=== PATIENT | male | born 1930 | race Caucasian/White ===

== ENCOUNTER → 2016-06-07 | Outpatient (CLI) | payer MEDICARE, BC ==
[~2016-06-07] MED LIST: ALDACTONE 25MG25 MG PO; ENALAPRIL20 MG PO; FLOMAX0.4 MG PO; IMDUR ER30 MG PO; LIPITOR 10MG10 MG PO; NIFEDIPINE ER90 MG PO; TIMOLOL 0.5% OP10 ML OU; ZANTAC 300300 MG PO; ZYLOPRIM300 MG PO
== END ==
LOC: LAB 10:59
DX: R19.7 Diarrhea, unspecified (principal)

== ENCOUNTER → 2016-06-19 | Outpatient (CLI) | payer MEDICARE, BC | LOC: LAB 11:03 | DX: Z51.81 Encounter for therapeutic drug level monitoring (principal); Z79.899 Other long term (current) drug therapy ==

== ENCOUNTER → 2016-07-03 | Outpatient (CLI) | payer MEDICARE, BC | LOC: LAB 10:11 | DX: Z79.899 Other long term (current) drug therapy (principal) ==

== ENCOUNTER → 2016-07-14 | Outpatient (CLI) | payer MEDICARE, BC | LOC: RAD 10:41 | DX: E11.9 Type 2 diabetes mellitus without complications (principal); J01.00 Acute maxillary sinusitis, unspecified; I25.10 Atherosclerotic heart disease of native coronary artery without angina pectoris ==

== ENCOUNTER → 2016-07-17 | Outpatient (CLI) | payer MEDICARE, BC | LOC: LAB 09:04 | DX: Z51.81 Encounter for therapeutic drug level monitoring (principal); Z79.899 Other long term (current) drug therapy; I25.10 Atherosclerotic heart disease of native coronary artery without angina pectoris ==

== ENCOUNTER → 2016-07-30 | Outpatient (CLI) | payer MEDICARE, BC | LOC: LAB 13:59 | DX: I25.10 Atherosclerotic heart disease of native coronary artery without angina pectoris (principal) ==

== ENCOUNTER → 2016-09-03 | Outpatient (CLI) | payer MEDICARE, BC ==
[2014-02-06 16:12] VITALS: BP 134/74
== END ==
LOC: LAB 11:41
DX: I25.10 Atherosclerotic heart disease of native coronary artery without angina pectoris (principal)

== ENCOUNTER → 2016-12-09 | Outpatient (CLI) | payer MEDICARE, BC ==
[2014-02-06 16:12] VITALS: BP 134/74
== END ==
LOC: LAB 12:56
DX: E11.9 Type 2 diabetes mellitus without complications (principal); I25.10 Atherosclerotic heart disease of native coronary artery without angina pectoris

== ENCOUNTER → 2017-02-02 | Outpatient (CLI) | payer MEDICARE, BC ==
[2014-02-06 16:12] VITALS: BP 134/74
== END ==
LOC: LAB 10:05
DX: E11.9 Type 2 diabetes mellitus without complications (principal); Z12.5 Encounter for screening for malignant neoplasm of prostate; I25.10 Atherosclerotic heart disease of native coronary artery without angina pectoris; N52.9 Male erectile dysfunction, unspecified; D64.9 Anemia, unspecified; R20.2 Paresthesia of skin; R10.84 Generalized abdominal pain

== ENCOUNTER → 2017-02-04 | Outpatient (CLI) | payer MEDICARE, BC ==
[2014-02-06 16:12] VITALS: BP 134/74
== END ==
LOC: LAB 14:52
DX: E11.9 Type 2 diabetes mellitus without complications (principal)

== ENCOUNTER → 2017-04-14 | Outpatient (CLI) | payer MEDICARE, BC ==
[~2017-04-14] VITALS: Ht 177.8 cm; Wt 90.9 kg
[~2017-04-14] MED LIST changes: +AMOXICILLIN875 MG; +NATURAL IRON65 MG; +OMEPRAZOLE40 MG PO; +SLOW-MAG 106 MG1 ECT; +VITAMIN C500 MG
[2017-04-14 14:17] LABS: HEMATOCRIT 32.4 % (42.0-52.0); HEMOGLOBIN 10.4 g/dL (13.5-18.0); MEAN PLATELET VOLUME 10.2 fl (7.4-10.4); RED BLOOD COUNT 3.77 M/mm3 (4.20-5.60); WHITE BLOOD COUNT 8.6 K/mm3 (4.8-10.8)
[2017-04-14 14:27] LABS: BUN/CREATININE RATIO 35.7 (6.0-26.0); CALCIUM 9.1 mg/dL (8.4-10.2); POTASSIUM 3.7 mmol/L (3.6-5.0)
[2017-04-14 15:02] VITALS: BP 121/63
[2017-04-14 16:29] VITALS: BP 126/65
== END ==
LOC: LAB 13:57 → AMSURD 13:57
PROVIDERS: Family Medicine
DX: K52.9 Noninfective gastroenteritis and colitis, unspecified (principal); R53.83 Other fatigue; K92.1 Melena; D50.9 Iron deficiency anemia, unspecified
CPT/HCPCS: J7030

== ENCOUNTER → 2017-05-24 | Outpatient (CLI) | payer MEDICARE, BC ==
[2017-04-14 16:29] VITALS: BP 126/65
[2017-05-24 15:44] LABS: ALBUMIN 4.1 g/dL (3.5-5.0); BUN/CREATININE RATIO 15.8 (6.0-26.0); CALCIUM 9.2 mg/dL (8.4-10.2); POTASSIUM 3.8 mmol/L (3.6-5.0); TOTAL BILIRUBIN 0.5 mg/dL (0.2-1.3); TOTAL PROTEIN 7.2 g/dL (6.3-8.2)
[2017-05-24 15:46] LABS: EOS # 0.2 (0.04-0.40); EOS % 3.1 % (0.0-4.0); HEMATOCRIT 44.4 % (42.0-52.0); HEMOGLOBIN 13.9 g/dL (13.5-18.0); LYMPH# 1.3 (1.50-4.00); MEAN CELL VOLUME 87 fl (78-100); MEAN CORPUSCULAR HEMOGLOBIN 27 pg (27-31); MEAN CORPUSCULAR HGB CONC 31 g/dL (33-37); MONO # 0.6 (0.20-0.80); NEU # 4.3 (1.40-6.50); PLATELET COUNT 242 K/mm3 (130-400); RED BLOOD COUNT 5.09 M/mm3 (4.20-5.60); RED CELL DISTRIBUTION WIDTH 14.3 % (11.5-14.5); WHITE BLOOD COUNT 6.5 K/mm3 (4.8-10.8)
== END ==
LOC: LAB 15:02
PROVIDERS: Internal Medicine
DX: E11.9 Type 2 diabetes mellitus without complications (principal); D50.9 Iron deficiency anemia, unspecified; I25.10 Atherosclerotic heart disease of native coronary artery without angina pectoris

== ENCOUNTER → 2017-09-01 | Outpatient (CLI) | payer MEDICARE, BC ==
[2017-04-14 16:29] VITALS: BP 126/65
[2017-09-01 14:22] LABS: EOS # 0.2 (0.04-0.40); EOS % 2.7 % (0.0-4.0); HEMATOCRIT 46.6 % (42.0-52.0); HEMOGLOBIN 15.4 g/dL (13.5-18.0); LYMPH# 1.3 (1.50-4.00); MEAN CELL VOLUME 81 fl (78-100); MEAN CORPUSCULAR HEMOGLOBIN 27 pg (27-31); MEAN CORPUSCULAR HGB CONC 33 g/dL (33-37); MEAN PLATELET VOLUME 10.9 fl (7.4-10.4); MONO # 0.5 (0.20-0.80); NEU # 4.9 (1.40-6.50); PLATELET COUNT 232 K/mm3 (130-400); RED BLOOD COUNT 5.79 M/mm3 (4.20-5.60)
[2017-09-01 14:56] LABS: BUN/CREATININE RATIO 17.4 (6.0-26.0); CALCIUM 9.5 mg/dL (8.4-10.2); TOTAL BILIRUBIN 0.6 mg/dL (0.2-1.3)
[2017-09-01 16:32] LABS: ERYTHROCYTE SEDIMENTATION RATE 1 mm/hr (0-20)
== END ==
LOC: LAB 14:01
PROVIDERS: Internal Medicine
DX: E11.9 Type 2 diabetes mellitus without complications (principal); I25.10 Atherosclerotic heart disease of native coronary artery without angina pectoris; D64.9 Anemia, unspecified; R20.2 Paresthesia of skin

== ENCOUNTER → 2018-03-01 | Outpatient (CLI) | payer MEDICARE, BC ==
[2017-04-14 16:29] VITALS: BP 126/65
== END ==
LOC: LAB 15:26
PROVIDERS: Internal Medicine
DX: E11.9 Type 2 diabetes mellitus without complications (principal)

== ENCOUNTER → 2018-07-25 | Outpatient (CLI) | payer MEDICARE, BC ==
[2017-04-14 16:29] VITALS: BP 126/65
[2018-07-25 11:41] LABS: EOS # 0.2 (0.04-0.40); EOS % 2.4 % (0.0-4.0); HEMATOCRIT 47.3 % (42.0-52.0); HEMOGLOBIN 15.5 g/dL (13.5-18.0); LYMPH# 1.5 (1.50-4.00); MEAN CELL VOLUME 85 fl (78-100); MEAN CORPUSCULAR HEMOGLOBIN 28 pg (27-31); MEAN CORPUSCULAR HGB CONC 33 g/dL (33-37); MEAN PLATELET VOLUME 11.2 fl (7.4-10.4); MONO # 0.4 (0.20-0.80); PLATELET COUNT 204 K/mm3 (130-400); RED CELL DISTRIBUTION WIDTH 14.5 % (11.5-14.5); WHITE BLOOD COUNT 6.2 K/mm3 (4.8-10.8)
[2018-07-25 13:48] LABS: ALBUMIN 4.1 g/dL (3.5-5.0); CALCIUM 9.1 mg/dL (8.4-10.2); POTASSIUM 3.7 mmol/L (3.6-5.0); TOTAL BILIRUBIN 0.7 mg/dL (0.2-1.3); TOTAL PROTEIN 6.8 g/dL (6.3-8.2)
== END ==
LOC: LAB 11:10
PROVIDERS: Internal Medicine
DX: G25.0 Essential tremor (principal); D50.9 Iron deficiency anemia, unspecified; I25.10 Atherosclerotic heart disease of native coronary artery without angina pectoris; E11.9 Type 2 diabetes mellitus without complications

== ENCOUNTER → 2019-01-12 | Outpatient (CLI) | payer MEDICARE, BC ==
[2017-04-14 16:29] VITALS: BP 126/65
[~2019-01-12] MED LIST changes: +CYANOCOBAL1000 MCG/1 IM; +LEXAPRO 10MG10 MG PO; +VITAMIN D 1001000 IU PO
[2019-01-12 16:02] LABS: EOS # 0.2 (0.04-0.40); EOS % 2.8 % (0.0-4.0); HEMATOCRIT 49.3 % (42.0-52.0); HEMOGLOBIN 16.1 g/dL (13.5-18.0); LYMPH# 1.2 (1.50-4.00); MEAN CELL VOLUME 84 fl (78-100); MEAN CORPUSCULAR HEMOGLOBIN 27 pg (27-31); MEAN CORPUSCULAR HGB CONC 33 g/dL (33-37); MEAN PLATELET VOLUME 10.7 fl (7.4-10.4); MONO # 0.4 (0.20-0.80); NEU # 4.7 (1.40-6.50); PLATELET COUNT 197 K/mm3 (130-400); RED BLOOD COUNT 5.88 M/mm3 (4.20-5.60); RED CELL DISTRIBUTION WIDTH 13.8 % (11.5-14.5); WHITE BLOOD COUNT 6.5 K/mm3 (4.8-10.8)
[2019-01-12 16:10] LABS: ALBUMIN 4.1 g/dL (3.4-4.8)
[2019-01-12 16:11] LABS: CALCIUM 9.5 mg/dL (8.3-10.5)
[2019-01-12 16:14] LABS: TOTAL BILIRUBIN 0.8 mg/dL (0.2-1.2)
[2019-01-12 17:24] LABS: ERYTHROCYTE SEDIMENTATION RATE 2 mm/hr (0-20)
== END ==
LOC: LAB 14:56
PROVIDERS: Internal Medicine
DX: E11.9 Type 2 diabetes mellitus without complications (principal); G25.0 Essential tremor; D50.9 Iron deficiency anemia, unspecified; I25.10 Atherosclerotic heart disease of native coronary artery without angina pectoris

== ENCOUNTER → 2019-01-16 | Outpatient (CLI) | payer MEDICARE, BC ==
[~2019-01-16] VITALS: Ht 177.8 cm; Wt 90.9 kg
[2019-01-16 15:25] VITALS: BP 164/82
== END ==
LOC: AMSURD 15:23
DX: R00.1 Bradycardia, unspecified (principal)

== ENCOUNTER → 2019-05-30 | Outpatient (CLI) | payer MEDICARE, BC ==
[2019-01-16 15:25] VITALS: BP 164/82
[2019-05-30 11:43] LABS: EOS # 0.2 (0.04-0.40); EOS % 3.3 % (0.0-4.0); HEMATOCRIT 47.5 % (42.0-52.0); HEMOGLOBIN 15.6 g/dL (13.5-18.0); LYMPH# 1.1 (1.50-4.00); MEAN CELL VOLUME 84 fl (78-100); MEAN CORPUSCULAR HEMOGLOBIN 28 pg (27-31); MEAN CORPUSCULAR HGB CONC 33 g/dL (33-37); MEAN PLATELET VOLUME 10.9 fl (7.4-10.4); MONO # 0.5 (0.20-0.80); NEU # 4.2 (1.40-6.50); PLATELET COUNT 216 K/mm3 (130-400); RED BLOOD COUNT 5.63 M/mm3 (4.20-5.60); RED CELL DISTRIBUTION WIDTH 13.9 % (11.5-14.5); WHITE BLOOD COUNT 6.1 K/mm3 (4.8-10.8)
[2019-05-30 11:45] LABS: ALBUMIN 4.2 g/dL (3.4-4.8); POTASSIUM 3.7 mmol/L (3.5-5.1)
[2019-05-30 11:46] LABS: CALCIUM 8.4 mg/dL (8.3-10.5)
[2019-05-30 11:49] LABS: TOTAL BILIRUBIN 0.7 mg/dL (0.2-1.2)
== END ==
LOC: LAB 11:21
PROVIDERS: Internal Medicine
DX: E11.9 Type 2 diabetes mellitus without complications (principal); D50.9 Iron deficiency anemia, unspecified; G25.0 Essential tremor

== ENCOUNTER → 2019-08-15 | Outpatient (CLI) | payer MEDICARE, BC ==
[2019-01-16 15:25] VITALS: BP 164/82
[2019-08-15 13:02] LABS: EOS # 0.3 (0.04-0.40); HEMATOCRIT 45.1 % (42.0-52.0); HEMOGLOBIN 14.7 g/dL (13.5-18.0); LYMPH# 1.1 (1.50-4.00); MEAN CELL VOLUME 84 fl (78-100); MEAN CORPUSCULAR HEMOGLOBIN 28 pg (27-31); MEAN CORPUSCULAR HGB CONC 33 g/dL (33-37); MEAN PLATELET VOLUME 10.5 fl (7.4-10.4); MONO # 0.5 (0.20-0.80); NEU # 4.4 (1.40-6.50); PLATELET COUNT 217 K/mm3 (130-400); RED BLOOD COUNT 5.35 M/mm3 (4.20-5.60); RED CELL DISTRIBUTION WIDTH 14.3 % (11.5-14.5); WHITE BLOOD COUNT 6.4 K/mm3 (4.8-10.8)
[2019-08-15 13:12] LABS: ALBUMIN 3.7 g/dL (3.4-4.8)
[2019-08-15 13:13] LABS: POTASSIUM 3.9 mmol/L (3.5-5.1)
[2019-08-15 13:14] LABS: CALCIUM 8.8 mg/dL (8.3-10.5)
[2019-08-15 13:15] LABS: TOTAL PROTEIN 6.6 g/dL (6.2-8.1)
[2019-08-15 13:17] LABS: TOTAL BILIRUBIN 0.5 mg/dL (0.2-1.2)
[2019-08-15 14:40] LABS: EOS % 5.3 % (0.0-4.0)
== END ==
LOC: LAB 12:47
PROVIDERS: Internal Medicine
DX: E11.9 Type 2 diabetes mellitus without complications (principal); D50.9 Iron deficiency anemia, unspecified; G25.0 Essential tremor

== ENCOUNTER → 2019-12-06 | Outpatient (CLI) | payer MEDICARE, BC ==
[2019-01-16 15:25] VITALS: BP 164/82
[2019-12-06 10:11] LABS: EOS # 0.2 (0.04-0.40); EOS % 3.1 % (0.0-4.0); HEMOGLOBIN 15.8 g/dL (13.5-18.0); LYMPH# 1.2 (1.50-4.00); MEAN CELL VOLUME 84 fl (78-100); MEAN CORPUSCULAR HEMOGLOBIN 28 pg (27-31); MEAN CORPUSCULAR HGB CONC 33 g/dL (33-37); MONO # 0.4 (0.20-0.80); NEU # 3.6 (1.40-6.50); PLATELET COUNT 221 K/mm3 (130-400); RED BLOOD COUNT 5.75 M/mm3 (4.20-5.60); RED CELL DISTRIBUTION WIDTH 14.8 % (11.5-14.5); WHITE BLOOD COUNT 5.4 K/mm3 (4.8-10.8)
[2019-12-06 10:14] LABS: ALBUMIN 3.9 g/dL (3.4-4.8)
[2019-12-06 10:15] LABS: POTASSIUM 3.8 mmol/L (3.5-5.1)
[2019-12-06 10:16] LABS: CALCIUM 8.9 mg/dL (8.3-10.5)
[2019-12-06 10:19] LABS: TOTAL BILIRUBIN 0.7 mg/dL (0.2-1.2)
== END ==
LOC: LAB 09:47
PROVIDERS: Internal Medicine
DX: Z12.5 Encounter for screening for malignant neoplasm of prostate (principal); G25.0 Essential tremor

== ENCOUNTER → 2020-03-19 | Outpatient (CLI) | payer MEDICARE, BC ==
[2019-01-16 15:25] VITALS: BP 164/82
[2020-03-19 14:34] LABS: ALBUMIN 4.2 g/dL (3.4-4.8); POTASSIUM 3.7 mmol/L (3.5-5.1)
[2020-03-19 14:35] LABS: CALCIUM 9.3 mg/dL (8.3-10.5)
[2020-03-19 14:37] LABS: TOTAL PROTEIN 7.6 g/dL (6.2-8.1)
[2020-03-19 14:38] LABS: TOTAL BILIRUBIN 0.6 mg/dL (0.2-1.2)
[2020-03-20 15:37] LABS: EOS # 0.2 (0.04-0.40); EOS % 3.2 % (0.0-4.0); HEMATOCRIT 48.7 % (42.0-52.0); LYMPH# 1.2 (1.50-4.00); MEAN CELL VOLUME 84 fl (78-100); MEAN CORPUSCULAR HEMOGLOBIN 28 pg (27-31); MEAN CORPUSCULAR HGB CONC 33 g/dL (33-37); MEAN PLATELET VOLUME 11.7 fl (7.4-10.4); MONO # 0.6 (0.20-0.80); NEU # 5.5 (1.40-6.50); PLATELET COUNT 235 K/mm3 (130-400); RED BLOOD COUNT 5.77 M/mm3 (4.20-5.60); RED CELL DISTRIBUTION WIDTH 14.1 % (11.5-14.5); WHITE BLOOD COUNT 7.6 K/mm3 (4.8-10.8)
== END ==
LOC: LAB 14:14
PROVIDERS: Internal Medicine
DX: I25.10 Atherosclerotic heart disease of native coronary artery without angina pectoris (principal); K90.9 Intestinal malabsorption, unspecified; G25.0 Essential tremor; E11.9 Type 2 diabetes mellitus without complications; D50.9 Iron deficiency anemia, unspecified

== ENCOUNTER → 2020-06-28 | Outpatient (CLI) | payer MEDICARE, BC ==
[2019-01-16 15:25] VITALS: BP 164/82
[2020-06-28 12:29] LABS: EOS # 0.3 (0.04-0.40); HEMATOCRIT 47.9 % (42.0-52.0); HEMOGLOBIN 15.6 g/dL (13.5-18.0); LYMPH# 1.2 (1.50-4.00); MEAN CELL VOLUME 85 fl (78-100); MEAN CORPUSCULAR HEMOGLOBIN 28 pg (27-31); MEAN CORPUSCULAR HGB CONC 33 g/dL (33-37); MEAN PLATELET VOLUME 10.4 fl (7.4-10.4); MONO # 0.5 (0.20-0.80); NEU # 4.5 (1.40-6.50); PLATELET COUNT 236 K/mm3 (130-400); RED BLOOD COUNT 5.61 M/mm3 (4.20-5.60); RED CELL DISTRIBUTION WIDTH 14.5 % (11.5-14.5); WHITE BLOOD COUNT 6.5 K/mm3 (4.8-10.8)
[2020-06-28 12:36] LABS: ALBUMIN 4.1 g/dL (3.4-4.8)
[2020-06-28 12:37] LABS: POTASSIUM 3.9 mmol/L (3.5-5.1)
[2020-06-28 12:38] LABS: CALCIUM 9.1 mg/dL (8.3-10.5)
[2020-06-28 12:39] LABS: TOTAL PROTEIN 7.1 g/dL (6.2-8.1)
[2020-06-28 12:41] LABS: TOTAL BILIRUBIN 0.9 mg/dL (0.2-1.2)
== END ==
LOC: LAB 12:04
PROVIDERS: Internal Medicine
DX: E11.9 Type 2 diabetes mellitus without complications (principal); D64.9 Anemia, unspecified

== ENCOUNTER → 2020-12-23 | Outpatient (CLI) | payer MEDICARE, BC ==
[2020-12-23 15:49] LABS: BASO # 0.04 (0.02-0.10); EOS # 0.14 (0.04-0.40); EOS % 2.4 % (0.0-4.0); HEMATOCRIT 47.9 % (42.0-52.0); HEMOGLOBIN 15.5 g/dL (13.5-18.0); LYMPH# 0.89 (1.50-4.00); MEAN CELL VOLUME 87 fl (78-100); MEAN CORPUSCULAR HEMOGLOBIN 28 pg (27-31); MEAN CORPUSCULAR HGB CONC 32 g/dL (33-37); MEAN PLATELET VOLUME 10.5 fl (7.4-10.4); MONO # 0.47 (0.20-0.80); NEU # 4.38 (1.40-6.50); PLATELET COUNT 227 K/mm3 (130-400); RED BLOOD COUNT 5.51 M/mm3 (4.20-5.60); RED CELL DISTRIBUTION WIDTH 14.4 % (11.5-14.5); WHITE BLOOD COUNT 5.9 K/mm3 (4.8-10.8)
[2020-12-23 16:11] LABS: ALBUMIN 3.9 g/dL (3.4-4.8)
[2020-12-23 16:12] LABS: CALCIUM 8.9 mg/dL (8.3-10.5)
[2020-12-23 16:13] LABS: TOTAL PROTEIN 6.7 g/dL (6.2-8.1)
[2020-12-23 16:15] LABS: TOTAL BILIRUBIN 0.5 mg/dL (0.2-1.2)
[2020-12-23 22:40] LABS: TESTOSTERONE 484 ng/dL (221-716)
== END ==
LOC: LAB 15:11
PROVIDERS: Internal Medicine
DX: K90.9 Intestinal malabsorption, unspecified (principal); R97.8 Other abnormal tumor markers; I10 Essential (primary) hypertension; M10.9 Gout, unspecified; E23.0 Hypopituitarism; E11.9 Type 2 diabetes mellitus without complications

== ENCOUNTER → 2020-12-26 | Outpatient (CLI) | payer MEDICARE, BC ==
[2020-12-26 14:44] LABS: ALBUMIN 3.8 g/dL (3.4-4.8); POTASSIUM 4.2 mmol/L (3.5-5.1)
[2020-12-26 14:45] LABS: CALCIUM 9.7 mg/dL (8.3-10.5)
[2020-12-26 14:47] LABS: TOTAL PROTEIN 6.8 g/dL (6.2-8.1)
[2020-12-26 14:48] LABS: BASO # 0.03 (0.02-0.10); EOS # 0.13 (0.04-0.40); EOS % 2.4 % (0.0-4.0); HEMATOCRIT 47.2 % (42.0-52.0); HEMOGLOBIN 15.4 g/dL (13.5-18.0); LYMPH# 0.96 (1.50-4.00); MEAN CELL VOLUME 86 fl (78-100); MEAN CORPUSCULAR HEMOGLOBIN 28 pg (27-31); MEAN CORPUSCULAR HGB CONC 33 g/dL (33-37); MONO # 0.49 (0.20-0.80); PLATELET COUNT 219 K/mm3 (130-400); RED BLOOD COUNT 5.49 M/mm3 (4.20-5.60); RED CELL DISTRIBUTION WIDTH 14.3 % (11.5-14.5); TOTAL BILIRUBIN 0.7 mg/dL (0.2-1.2); WHITE BLOOD COUNT 5.3 K/mm3 (4.8-10.8)
[2020-12-26 14:53] LABS: D-DIMER 0.51 mg/L FEU (0.15-0.50)
== END ==
LOC: RAD 14:17
PROVIDERS: Internal Medicine
DX: K44.9 Diaphragmatic hernia without obstruction or gangrene (principal); R09.02 Hypoxemia; Z95.0 Presence of cardiac pacemaker
CPT/HCPCS: Q9967

== ENCOUNTER → 2021-06-13 | Outpatient (CLI) | payer MEDICARE, BC ==
[2021-06-13 15:38] LABS: BASO # 0.02 K/mm3 (0.02-0.10); EOS % 1.7 % (0.0-4.0); HEMOGLOBIN 16.2 g/dL (13.5-18.0); LYMPH# 1.22 K/mm3 (1.50-4.00); MEAN CELL VOLUME 86 fl (78-100); MEAN CORPUSCULAR HEMOGLOBIN 28 pg (27-31); MEAN CORPUSCULAR HGB CONC 32 g/dL (33-37); MEAN PLATELET VOLUME 10.8 fl (7.4-10.4); MONO # 0.44 K/mm3 (0.20-0.80); NEU # 3.99 K/mm3 (1.40-6.50); PLATELET COUNT 231 K/mm3 (130-400); RED BLOOD COUNT 5.83 M/mm3 (4.20-5.60); RED CELL DISTRIBUTION WIDTH 13.5 % (11.5-14.5); WHITE BLOOD COUNT 5.8 K/mm3 (4.8-10.8)
[2021-06-13 15:45] LABS: POTASSIUM 3.8 mmol/L (3.5-5.1)
[2021-06-13 15:46] LABS: ALBUMIN 4.1 g/dL (3.4-4.8)
[2021-06-13 15:47] LABS: CALCIUM 9.4 mg/dL (8.3-10.5)
[2021-06-13 15:50] LABS: TOTAL BILIRUBIN 0.7 mg/dL (0.2-1.2)
[2021-06-13 15:55] LABS: MAGNESIUM 1.76 mg/dL (1.60-2.60)
== END ==
LOC: LAB 15:18
PROVIDERS: Internal Medicine
DX: I25.10 Atherosclerotic heart disease of native coronary artery without angina pectoris (principal); I10 Essential (primary) hypertension; E11.9 Type 2 diabetes mellitus without complications; E78.5 Hyperlipidemia, unspecified; K90.9 Intestinal malabsorption, unspecified; K91.1 Postgastric surgery syndromes; E53.8 Deficiency of other specified B group vitamins; Z28.3 Underimmunization status

== ENCOUNTER → 2021-09-12 | Outpatient (CLI) | payer MEDICARE, BC ==
[2021-09-12 16:25] LABS: BASO # 0.03 K/mm3 (0.02-0.10); EOS # 0.16 K/mm3 (0.04-0.40); EOS % 2.6 % (0.0-4.0); HEMATOCRIT 50.3 % (42.0-52.0); HEMOGLOBIN 16.1 g/dL (13.5-18.0); LYMPH# 1.19 K/mm3 (1.50-4.00); MEAN CELL VOLUME 86 fl (78-100); MEAN CORPUSCULAR HEMOGLOBIN 28 pg (27-31); MEAN CORPUSCULAR HGB CONC 32 g/dL (33-37); MEAN PLATELET VOLUME 10.6 fl (7.4-10.4); MONO # 0.41 K/mm3 (0.20-0.80); NEU # 4.41 K/mm3 (1.40-6.50); PLATELET COUNT 254 K/mm3 (130-400); RED BLOOD COUNT 5.82 M/mm3 (4.20-5.60); RED CELL DISTRIBUTION WIDTH 14.2 % (11.5-14.5); WHITE BLOOD COUNT 6.2 K/mm3 (4.8-10.8)
[2021-09-12 16:31] LABS: ALBUMIN 4.3 g/dL (3.4-4.8)
[2021-09-12 16:32] LABS: POTASSIUM 4.2 mmol/L (3.5-5.1)
[2021-09-12 16:33] LABS: CALCIUM 9.8 mg/dL (8.3-10.5)
[2021-09-12 16:34] LABS: TOTAL PROTEIN 7.5 g/dL (6.2-8.1)
[2021-09-12 16:36] LABS: TOTAL BILIRUBIN 0.6 mg/dL (0.2-1.2)
[2021-09-12 16:41] LABS: MAGNESIUM 1.85 mg/dL (1.60-2.60)
== END ==
LOC: LAB 16:14
PROVIDERS: Internal Medicine
DX: I10 Essential (primary) hypertension (principal); K90.9 Intestinal malabsorption, unspecified; I25.10 Atherosclerotic heart disease of native coronary artery without angina pectoris; K91.1 Postgastric surgery syndromes; E78.5 Hyperlipidemia, unspecified; E53.8 Deficiency of other specified B group vitamins; E11.9 Type 2 diabetes mellitus without complications